=== PATIENT | female | born 1965 ===

== ENCOUNTER 2019-04-20 06:05 | Day surgery (SDC) | payer OTHER ==
[~2019-04-20] VITALS: Ht 157.5 cm; Wt 84.8 kg
[~2019-04-20 06:05] MED LIST: DIOVAN40 MG PO; PROVENTIL HFA6.7 GM IH; SINGULAIR4 M1 PO; STIOLTO RESPIMAT4 GM IH
[2019-04-20] MEDS ORDERED: TRAM1TAB98 PO (12:20)
[2019-04-20] MEDS ORDERED: Septra Ds Tablet PO (12:20)
== END 2019-04-20 18:20 | disposition home or self-care (01) ==
LOC: CIR.AMB 06:05 → ADM 07:45 → CIR.AMB 07:45 → EDBD 07:45 → CIR.AMB 18:20
DX: M23.322 Other meniscus derangements, posterior horn of medial meniscus, left knee (principal); M65.862 Other synovitis and tenosynovitis, left lower leg